=== PATIENT | male | born 1990 | race Caucasian/White ===

== ENCOUNTER 2020-10-26 03:01 | Emergency (ER) | payer BC, OTHER ==
[~2020-10-26] VITALS: Ht 190.5 cm; Wt 149.7 kg
[2020-10-26] MEDS ORDERED: diazePAM 5 MG TAB PO ONE (03:30)
[2020-10-26] MEDS ORDERED: PHENYLEPHRINE INJ 10 MG in SODIUM CHL 0.9% 19 ML ICC ONE (06:45)
[2020-10-26] MEDS ORDERED: LIDOCAINE 2%HCL (LOCAL ANESTH.) INJ 20ML MDV ID ONE (06:45)
[2020-10-26] MEDS ORDERED: BACITRACIN TOP OINT 1 UD PKG TOP ONE (06:45)
[2020-10-26] MEDS ORDERED: PHENYLEPHRINE HCL 10 MG/ML VL ONE (06:57)
[2020-10-26 07:52] VITALS: BP 113/58
== END 2020-10-26 08:34 | disposition still patient (30) ==
LOC: ER 03:01
DX: N48.30 Priapism, unspecified (principal)
CPT/HCPCS: 54220; 99285; J2370

== ENCOUNTER 2023-02-24 08:34 | Emergency (ER) | payer BC ==
[~2023-02-24] VITALS: Ht 190.5 cm; Wt 179.9 kg
[2023-02-24 10:10] VITALS: PULSE 79; RESP 19; O2SAT 96
[2023-02-24] MEDS ORDERED: CEPH250C PO (10:55)
[2023-02-24 13:00] VITALS: BP 121/70; PULSE 79; RESP 19; O2SAT 97
== END 2023-02-24 13:45 | disposition home or self-care (01) ==
LOC: ER 08:34
DX: N48.30 Priapism, unspecified (principal)